=== PATIENT | male | born 1955 | race American Indian/Alaskan Native ===

== ENCOUNTER 2018-05-06 16:02 | Emergency (ER) | payer MEDICAID ==
[2018-05-06 16:21] VITALS: BP 131/94
--- NOTE | 2018-05-06 16:25 | Emergency Department Report ---
Chief Complaint: Recheck/Abnormal Lab/Rx Stated Complaint: WEAKNESS Time Seen by Provider: 05/06/18 16:19 - HPI History of Present Illness: This is a 63 y.o. male that presents to ER to evaluate hypotension. Patient states he was at [employer] and told he was hypotensive and need to be sent to the ER for further evaluation. - Exam Vital Signs: Vital Signs 05/06/18 16:17 Temperature 97.5 F L Pulse Rate 69 Respiratory 18 Rate Blood Pressure 131/94 O2 Sat by Pulse 100 Oximetry MSE screening note: Focused history and physical exam performed. Due to findings the following was ordered: Orthostatic VS ACC for further evaluation ED Disposition for MSE Condition: Stable
== END 2018-05-06 19:00 | disposition left against medical advice (07) ==
LOC: ED 16:02
DX: I95.9 Hypotension, unspecified (principal); Z53.21 Procedure and treatment not carried out due to patient leaving prior to being seen by health care provider

== ENCOUNTER 2021-04-11 09:00 | Emergency (ER) | payer MEDICAID, MEDICARE ==
[2021-04-11] MEDS ORDERED: MAGNESIUM SULFATE 2 GM/50 ML BAG IV ONE (09:28)
[2021-04-11] MEDS ORDERED: ALBUTEROL 2.5 MG/3 ML NEBU IH ONE (09:28)
[2021-04-11] MEDS ORDERED: dexAMETHasone 20 MG/5 ML VIAL IV ONE (09:28)
[2021-04-11] MEDS ORDERED: SODIUM CHLORIDE 0.9% 1000 ML 1,000 ML IV ONE (09:29)
--- NOTE | 2021-04-11 09:38 | Emergency Department Report ---
HPI - General Chief Complaint: Adult Asthma Time Seen by Provider: 04/11/21 09:14 - HPI HPI: 65-year-old male with history of hypertension and asthma brought in by EMS complaining of shortness of breath for the past 24 hours since running out of his albuterol inhaler. The patient states that he ran out of his inhaler the day before yesterday and for the entire day yesterday he felt constantly short of breath and with wheezing as well as dyspnea with mild exertion. The symptoms were not present when the patient had his albuterol inhaler which he uses every 4-6 hours. He did state that his last asthma exacerbation was proximately 2 weeks ago for which she was given a 4-day course of steroids. the patient was given 2.5 mg of nebulized albuterol in the ambulance en route to the hospital. He reports only mild if any improvement in his shortness of breath after the breathing treatment. Other than the shortness of breath and dyspnea on exerti on, the patient denies any recent or associated chest pain, cough, palpitations, leg swelling, nausea/vomiting, headache, vision changes, fever, neck pain/stiffness, back pain, dysuria, abdominal pain, focal weakness, sensory changes, or any other complaints. He is fully vaccinated against COVID-19 and has received a booster. ED Past Medical Hx - Past Medical History Hx Hypertension: Yes Hx Asthma: Yes Hx COPD: Yes Additional medical history: High cholesterol - Social History Smoking Status: Never Smoker Substance Use Type: Alcohol - Medications Home Medications: Home Medications Medication Instructions Recorded Confirmed Last Taken Type Albuterol Sulfate [Proair 90 mcg IH Q4H PRN #1 inh 04/11/21 Unknown Rx Respiclick] predniSONE [Deltasone] 40 mg PO QDAY #8 tab 04/11/21 Unknown Rx ED Review of Systems ROS: Stated complaint: SHORTNESS OF BREATH Other details as noted in HPI Comment: All other systems reviewed and negative Constitutional: denies: chills, fever Eyes: denies: eye pain, vision change ENT: denies: throat pain, congestion Respiratory: shortness of breath, SOB with exertion, wheezing. denies: cough Cardiovascular: denies: chest pain, palpitations Gastrointestinal: denies: abdominal pain, nausea, vomiting Genitourinary: denies: dysuria, hematuria, discharge Musculoskeletal: denies: back pain, arthralgia Skin: denies: rash, lesions Neurological: denies: headache, weakness, numbness, paresthesias Physical Exam - Physical Exam Vital Signs: Vital Signs 04/11/21 09:04 Temperature 97.8 F Pulse Rate 66 Respiratory 16 Rate Blood Pressure 125/72 [Left] O2 Sat by Pulse 97 Oximetry Physical Exam: GENERAL: Well developed and well nourished. Somnolent but oriented x4. No acute distress HEAD: Normocephalic. No obvious signs of trauma. ENT: Dry mucous membranes. EYES: Extraocular movements are intact. Pupils are equal round and reactive to light bilaterally NECK: Supple. Full ROM is intact. Trachea is midline. LUNGS: Tachypneic without respiratory distress. Equal chest rise bilaterally. There is severely limited air movement throughout the bilateral lungs with very faint end expiratory wheezing. CARDIOVASCULAR: Regular rate and rhythm. No murmurs or rubs. VASCULAR: Cap refill < 2 seconds ABDOMEN: Abdomen is soft and nondistended. There is no significant tenderness, guarding or rebound. SKIN: Skin is warm and dry NEURO: Patient is awake, alert, and oriented. pit supervisor II-XII grossly intact. No focal deficits. Normal motor and sensory exam throughout. Normal speech. MUSCULOSKELETAL: No obvious deformities. No significant tenderness. Normal ROM throughout. BACK/SPINE: No costovertebral angle tenderness. ED Course Vital Signs 04/11/21 09:04 Temperature 97.8 F Pulse Rate 66 Respiratory 16 Rate Blood Pressure 125/72 [Left] O2 Sat by Pulse 97 Oximetry ED Medical Decision Making - Lab Data Result diagrams: 04/11/21 09:50 04/11/21 09:50 Lab Results 04/11/21 04/11/21 04/11/21 Range/Units 09:50 09:50 09:50 WBC 3.4 L (4.5-11.0) K/mm3 RBC 3.83 (3.65-5.03) M/mm3 Hgb 12.8 (11.8-15.2) gm/dl Hct 38.9 (35.5-45.6) % MCV 102 H (84-94) fl MCH 34 H (28-32) pg MCHC 33 (32-34) % RDW 13.5 (13.2-15.2) % Plt Count 293 (140-440) K/mm3 Lymph % (Auto) 30.4 (13.4-35.0) % [place] % (Auto) 8.4 H (0.0-7.3) % Eos % (Auto) 6.7 H (0.0-4.3) % Baso % (Auto) 1.3 (0.0-1.8) % Lymph # (Auto) 1.0 L (1.2-5.4) K/mm3 [place] # (Auto) 0.3 (0.0-0.8) K/mm3 Eos # (Auto) 0.2 (0.0-0.4) K/mm3 Baso # (Auto) 0.0 (0.0-0.1) K/mm3 Seg Neutrophils % 53.2 (40.0-70.0) % Seg Neutrophils # 1.8 (1.8-7.7) K/mm3 Sodium 138 (137-145) mmol/L Potassium 3.9 (3.6-5.0) mmol/L Chloride 101.4 (98-107) mmol/L Carbon Dioxide 24 (22-30) mmol/L Anion Gap 17 mmol/L BUN 16 (9-20) mg/dL Creatinine 0.9 (0.8-1.3) mg/dL Estimated GFR > 60 ml/min BUN/Creatinine Ratio 18 % Glucose 89 (75-100) mg/dL Calcium 9.2 (8.4-10.2) mg/dL Magnesium 2.40 H (1.7-2.3) mg/dL Total Bilirubin 0.60 (0.1-1.2) mg/dL Direct Bilirubin < 0.2 (0-0.2) mg/dL Indirect Bilirubin 0.4 mg/dL AST 21 (5-40) units/L ALT 15 (7-56) units/L Alkaline Phosphatase 120 (35-129) units/L Troponin T < 0.010 (0.00-0.029) ng/mL NT-Pro-B Natriuret Pep 188.7 (0-900) pg/mL Total Protein 6.3 (6.3-8.2) g/dL Albumin 3.7 L (3.9-5) g/dL Albumin/Globulin Ratio 1.4 % Urine Opiates Screen Urine Methadone Screen Ur Barbiturates Screen Ur Phencyclidine Scrn Ur Amphetamines Screen U Benzodiazepines Scrn Urine Cocaine Screen U Marijuana (THC) Screen Drugs of Abuse Note Plasma/Serum Alcohol < 0.01 (0-0.07) % Coronavirus (PCR) (Negative) 04/11/21 04/11/21 04/11/21 Range/Units 10:20 12:50 Unknown WBC (4.5-11.0) K/mm3 RBC (3.65-5.03) M/mm3 Hgb (11.8-15.2) gm/dl Hct (35.5-45.6) % MCV (84-94) fl MCH (28-32) pg MCHC (32-34) % RDW (13.2-15.2) % Plt Count (140-440) K/mm3 Lymph % (Auto) (13.4-35.0) % [place] % (Auto) (0.0-7.3) % Eos % (Auto) (0.0-4.3) % Baso % (Auto) (0.0-1.8) % Lymph # (Auto) (1.2-5.4) K/mm3 [place] # (Auto) (0.0-0.8) K/mm3 Eos # (Auto) (0.0-0.4) K/mm3 Baso # (Auto) (0.0-0.1) K/mm3 Seg Neutrophils % (40.0-70.0) % Seg Neutrophils # (1.8-7.7) K/mm3 Sodium (137-145) mmol/L Potassium (3.6-5.0) mmol/L Chloride (98-107) mmol/L Carbon Dioxide (22-30) mmol/L Anion Gap mmol/L BUN (9-20) mg/dL Creatinine (0.8-1.3) mg/dL Estimated GFR ml/min BUN/Creatinine Ratio % Glucose (75-100) mg/dL Calcium (8.4-10.2) mg/dL Magnesium (1.7-2.3) mg/dL Total Bilirubin (0.1-1.2) mg/dL Direct Bilirubin (0-0.2) mg/dL Indirect Bilirubin mg/dL AST (5-40) units/L ALT (7-56) units/L Alkaline Phosphatase (35-129) units/L Troponin T < 0.010 (0.00-0.029) ng/mL NT-Pro-B Natriuret Pep (0-900) pg/mL Total Protein (6.3-8.2) g/dL Albumin (3.9-5) g/dL Albumin/Globulin Ratio % Urine Opiates Screen Negative Urine Methadone Screen Negative Ur Barbiturates Screen Negative Ur Phencyclidine Scrn Negative Ur Amphetamines Screen Negative U Benzodiazepines Scrn Negative Urine Cocaine Screen Positive U Marijuana (THC) Screen Negative Drugs of Abuse Note Disclamer Plasma/Serum Alcohol (0-0.07) % Coronavirus (PCR) Negative (Negative) - EKG Data -: EKG Interpreted by Me - EKG Data 04/11/21 12:59 Sinus bradycardia. Normal axis. Normal intervals. No ectopy. No significant ST segment or T wave abnormalities. Appears similar to prior EKG from 2019. - Radiology Data Radiology results: report reviewed - Medical Decision Making 65-year-old male with history of hypertension and asthma presents with shortness of breath and shortness of breath on exertion after running out of his albuterol inhaler for the past day. The patient was given 2.5 mg of nebulized albuterol in the ambulance. On my assessment he is not in respiratory distress but is tachypneic. He is slightly somnolent and has dry mucous membranes. He has a nonfocal neurologic exam. Heart sounds are normal. Lung auscultation reveals very limited air movement throughout with very faint end expiratory wheezing. We will perform broad work-up with a full set of labs, EKG, chest x- ray. We will give 1 L of IV fluids. Albuterol breathing treatments, Decadron 10 mg, and magnesium 2 g and then reassess Chest x-ray reveals no acute abnormalities. There is no significant leukocytosis or anemia although white blood cell count is 3.4 which is slightly low. Kidney function is normal and there are no significant electrolyte abnormalities. Troponin is negative. BNP is negative. On repeat assessment at 12:15 PM, the patient reports feeling much improved with virtually no residual respiratory symptoms at this time. Lungs are clear to auscultation. Will p.o. challenge and follow-up repeat troponin with plan to discharge the patient with prescription for albuterol inhaler and prednisone 40 mg x 4 days with PCP follow-up. This plan was discussed with the patient who expressed understanding and agreement with the plan of care. Critical Care Time: Yes Critical care time in (mins) excluding proc time.: 35 Critical care attestation.: If time is entered above; I have spent that time in minutes in the direct care of this critically ill patient, excluding procedure time. Critical care time was spent in evaluation/assessment, work-up, and management of asthma exacerbation requiring IV magnesium, steroids, continuous breathing treatments, and close monitoring as well as frequent repeat assessment ED Disposition Clinical Impression: Asthma exacerbation, Bradycardia Disposition: 01 HOME / SELF CARE / HOMELESS Is pt being admited?: No Condition: Stable Instructions: Asthma, Adult, Bradycardia, Adult, Asthma Attack Prevention, Ad ult Additional Instructions: You have been given a prescription for an albuterol inhaler as well as steroids. You should follow-up with your primary care doctor in the next few days. While in the emergency department you were observed to have a low heart rate which is called bradycardia (medical term). Again you should follow-up closely with your primary care doctor. Return for any significantly worsening symptoms or new health concerns. Prescriptions: predniSONE [Deltasone] 40 mg PO QDAY #8 tab Albuterol Sulfate [Proair Respiclick] 90 mcg IH Q4H PRN #1 inh PRN Reason: Wheezing Referrals: APRYL CLOUD MD [Primary Care Provider] - 3-5 Days
--- NOTE | 2021-04-11 10:22 | XRay Report ---
CHEST 1 VIEW INDICATION: SOB. COMPARISON: None FINDINGS: Support devices: None. Heart: Within normal limits. Lungs/Pleura: No acute air space or interstitial disease. No pleural abnormality or pneumothorax. Additional findings: None. IMPRESSION: No acute findings. Signer Name: Marco Dolan Jr, MD Signed: 04/11/2021 10:17 AM Workstation Name: [id number]
[2021-04-11 10:28] LABS: Basophils % (Auto) 1.3 % (0.0-1.8); Eosinophils # (Auto) 0.2 K/mm3 (0.0-0.4); Eosinophils % (Auto) 6.7 % (0.0-4.3); Hematocrit 38.9 % (35.5-45.6); Hemoglobin 12.8 gm/dl (11.8-15.2); Lymphocytes % (Auto) 30.4 % (13.4-35.0); Mean Corpuscular HGB Conc 33 % (32-34); Mean Corpuscular Volume 102 fl (84-94); Monocytes # (Auto) 0.3 K/mm3 (0.0-0.8); Monocytes % (Auto) 8.4 % (0.0-7.3); Platelet Count 293 K/mm3 (140-440); Red Blood Count 3.83 M/mm3 (3.65-5.03); Red Cell Distribution Width 13.5 % (13.2-15.2)
[2021-04-11 10:51] LABS: Alanine Aminotransferase 15 units/L (7-56); Albumin 3.7 g/dL (3.9-5); BUN/Creatinine Ratio 18; Blood Urea Nitrogen 16 mg/dL (9-20); Calcium 9.2 mg/dL (8.4-10.2); Hemolysis Index 6
[2021-04-11 10:53] LABS: Bilirubin,Direct < 0.2 mg/dL (0-0.2)
[2021-04-11 13:19] LABS: Amphetamine Screen,Urine Negative; Benzodiazepines Screen,Urine Negative; Cannabinoid Screen,Urine Negative; Methadone Screen,Urine Negative; Opiate Screen,Urine Negative
[2021-04-11 13:46] LABS: Cocaine Screen,Urine Positive
[2021-04-11 14:42] VITALS: BP 138/89
--- NOTE | 2021-04-11 17:41 | Electrocardiograph Report ---
[facility] Test Date: 2021-04-11 Test Time: 09:45:41 Pat Name: MARGARITO AGUILAR Department: Room: Gender: M Manager [employer]: JAMESON : 1955 Requested By: ALEXANDER THAO Order Number: [id number] Reading MD: Stefan Watson Measurements Intervals [place] Rate: 51 P: 75 IA: 155 QRS: 56 QRSD: 94 T: 62 QT: 490 QTc: 450 Interpretive Statements Sinus bradycardia Nonspecific ST abnormality No previous ECG available for comparison Electronically Signed On 04-11-2021 17:41:26 EST by Stefan Watson
== END 2021-04-11 14:41 | disposition home or self-care (01) ==
LOC: ED 09:00
DX: J45.901 Unspecified asthma with (acute) exacerbation (principal); I10 Essential (primary) hypertension; J44.9 Chronic obstructive pulmonary disease, unspecified; Z20.822 Contact with and (suspected) exposure to COVID-19; Z88.0 Allergy status to penicillin; Z72.89 Other problems related to lifestyle; Z79.899 Other long term (current) drug therapy
CPT/HCPCS: 36415; 71045; 80048; 80076; 80307; 83735; 83880; 84484; 85025; 87040; 93005; 93010; 94640; 96365; 96375; 99284; J1100; J3475; J7030; U0003; 80320; 94644; Q0162; G0480

== ENCOUNTER 2021-05-21 02:09 | Emergency (ER) | payer MEDICARE ==
--- NOTE | 2021-05-21 02:16 | Emergency Department Report ---
ED CPR HPI - General Stated Complaint: CARDIAC ARREST Time Seen by Provider: 05/21/21 02:12 Source: EMS Mode of arrival: Stretcher Limitations: Altered Mental Status - History of Present Illness MD Complaint: other (Witnessed arrest) -: hour(s) (1) Place: street Bystander CPR Performed: No AED Applied by Bystander/Jewel Hole Driller: Yes Number of Shocks Delivered: 3 Initial Findings in the Field: unresponsive, no pulse, PEA ROSC in the Field: No Associated Injuries: No Treatments Prior to Arrival: other airway device - Related Data Previous Rx's Medication Instructions Recorded Last Taken Type Albuterol Sulfate [Proair 90 mcg IH Q4H PRN #1 inh 04/11/21 Unknown Rx Respiclick] predniSONE [Deltasone] 40 mg PO QDAY #8 tab 04/11/21 Unknown Rx Allergies Allergy/AdvReac Type Severity Reaction Status Date / Time Penicillins Allergy Unknown Verified 04/11/21 09:06 ED Review of Systems ROS: Stated complaint: CARDIAC ARREST Other details as noted in HPI Comment: Unobtainable due to pts medical conditions ED Past Medical Hx - Past Medical History Hx Hypertension: Yes Hx Asthma: Yes Hx COPD: Yes Additional medical history: High cholesterol - Social History Smoking Status: Never Smoker Substance Use Type: Alcohol - Medications Home Medications: Home Medications Medication Instructions Recorded Confirmed Last Taken Type Albuterol Sulfate [Proair 90 mcg IH Q4H PRN #1 inh 04/11/21 Unknown Rx Respiclick] predniSONE [Deltasone] 40 mg PO QDAY #8 tab 04/11/21 Unknown Rx ED Physical Exam - General General appearance: other (Patient unresponsive, GCS 3) - Head Head exam: Present: atraumatic, normocephalic - Eye Eye exam: Present: other (Pupils fixed, glazed over) - Respiratory Respiratory exam: Present: other (No spontaneous respirations) - Cardiovascular Cardiovascular Exam: Present: other (No palpable pulse) - Neurological Exam Neurological exam: Present: other (GCS 3) - Skin Skin exam: Present: dry, intact ED Medical Decision Making - Medical Decision Making Patient is a 66-year-old male brought in by EMS for witnessed cardiac arrest. ACLS in progress for roughly an hour prior to arrival to emergency department. He was reportedly shocked 3 times and given multiple ACLS drugs. Unable to obtain ROSC in the field. ACLS was continued in the emergency department for 1 round given already lengthy time. Patient in asystole on pulse check. Time of 0209 hrs. Critical care attestation.: If time is entered above; I have spent that time in minutes in the direct care of this critically ill patient, excluding procedure time. ED Disposition Clinical Impression: Cardiac arrest Disposition: 20 Is pt being admited?: No
== END 2021-05-21 05:18 ==
LOC: ED 02:09
DX: I46.9 Cardiac arrest, cause unspecified (principal); I10 Essential (primary) hypertension; J45.909 Unspecified asthma, uncomplicated; Z88.0 Allergy status to penicillin; Z79.899 Other long term (current) drug therapy
CPT/HCPCS: 92950; 99285